=== PATIENT | male | born 1940 | race Caucasian/White ===

== ENCOUNTER → 2017-11-20 | Outpatient (CLI) | payer MEDICARE, OTHER ==
[~2017-11-20] MED LIST: COUMADIN4 MG PO; COUMADIN5 MG PO; DYAZIDE, MA1 CAPSULE PO; Dyazide, Maxzide 37. PO; Ecotrin PO; GLUCOPHAGE500 MG PO; LOPRESSOR25 MG PO; LORAZEPAM1 MG PO; METFORMIN HCL500 MG PO; PRILOSEC20 MG PO; PRINIVIL10 MG PO; ULTRACET1 TABLET PO; WARFARIN SODIUM5 MG PO; ZOCOR20 MG PO
== END | disposition home or self-care (01) ==
LOC: CDC 13:09
DX: Z01.810 Encounter for preprocedural cardiovascular examination (principal); N43.40 Spermatocele of epididymis, unspecified; I44.0 Atrioventricular block, first degree; R94.31 Abnormal electrocardiogram [ECG] [EKG]
CPT/HCPCS: 93000